=== PATIENT | male | born 1975 | race Two or more races ===

== ENCOUNTER 2020-09-23 10:16 | Emergency (ER) | payer MEDICARE, OTHER ==
[~2020-09-23] VITALS: Ht 180.3 cm; Wt 72.6 kg
--- NOTE | 2020-09-23 10:16 | NUR ---
PT [facility] AND [employer] FROM [facility] STRE[address] C/O BIZARRE BEHAVIOR AND METH USE. PT IS AAOX3, NOT IN RESPIRATORY DISTRESS, V/S STABLE, KEPT RESTED AND COMFORTABLE. WILL CONTINUE TO MONITOR.
--- NOTE | 2020-09-23 10:23 | NUR ---
SITTER AT BEDSIDE FOR SAFETY PRECAUTION.
[2020-09-23 11:10] LABS: BASOPHILS # (AUTO) 0.1 /CMM (0.0-0.2); BASOPHILS % (AUTO) 0.9 % (0.0-2.0); EOSINOPHILS % (AUTO) 0.4 % (0.0-6.0); HEMATOCRIT 34 % (39-51); HEMOGLOBIN 11.3 g/dL (13.5-17.5); LYMPHOCYTES # (AUTO) 2.1 /CMM (0.8-4.8); MEAN CORPUSCULAR HGB CONC 33 g/dl (31.0-36.0); MEAN CORPUSCULAR VOLUME 88 fL (80-96); MONOCYTES # (AUTO) 0.5 /CMM (0.1-1.30); MONOCYTES % (AUTO) 7.1 % (2.0-12.0); NEUTROPHILS # (AUTO) 4.6 /CMM (1.8-8.9); NEUTROPHILS % (AUTO) 62.6 % (43.0-81.0); PLATELET COUNT (AUTO) 218 /CMM (150-450); RED BLOOD CELL COUNT(AUTO) 3.86 MIL/uL (4.5-6.0); WHITE BLOOD COUNT (AUTO) 7.3 K/uL (4.3-11.0)
[2020-09-23 11:16] LABS: CALCIUM, SERUM 7.7 mg/dL (8.5-10.1); CARBON DIOXIDE 21 mmol/L (21-32); CHLORIDE 110 mmol/L (98-107); CREATININE 0.9 mg/dL (0.6-1.3); GLUCOSE 79 mg/dL (74-106); SODIUM SERUM 144 mmol/L (136-145); UREA NITROGEN, BLOOD 29 mg/dL (7-18)
[2020-09-23 11:22] LABS: ACETAMINOPHEN < 0 ug/ml (10-30); ALANINE AMINOTRANSFERASE 62 U/L (12-78); ALBUMIN 3.3 g/dL (3.4-5.0); ALCOHOL, BLOOD 125 mg/dL (0-0); ALKALINE PHOSPHATASE 67 U/L (46-116); ASPARTATE AMINOTRANSFERASE 120 U/L (15-37); BILIRUBIN,DIRECT 0.2 mg/dL (0.0-0.2); BILIRUBIN,TOTAL 2.9 mg/dL (0.2-1.0); TOTAL PROTEIN, SERUM 6.3 g/dL (6.4-8.2)
--- NOTE | 2020-09-23 12:16 | NUR ---
URINE SPECIMEN COLLECTED AND SENT TO LAB.
[2020-09-23 12:22] LABS: BILIRUBIN,URINE Negative (NEGATIVE); LEUKOCYTE ESTERASE ,URINE Negative (NEGATIVE); NITRITE, URINE Negative (NEGATIVE); PH,URINE 5.5 (5.0-8.0); PROTEIN,URINE 30 mg/dl (NEGATIVE); UGLUCOSE Negative (NEGATIVE); UROBILINOGEN,URINE 0.2 EU/dL (0.2)
[2020-09-23 12:23] LABS: COLOR,URINE DARK YELLOW (YELLOW)
[2020-09-23 12:27] LABS: BACTERIA,URINE Few /HPF (None Seen); RBC,URINE 21-50 /HPF (0-2); SQUAMOUS EPITHELIAL CELL,UR Few /HPF (None Seen)
[2020-09-23] MEDS ORDERED: diphenhydrAMINE HCL 50 MG/ML VIAL ONE (16:24)
[2020-09-23] MEDS ORDERED: LORAZEPAM INJ 2 MG/ML VIAL ONE (16:24)
[2020-09-23] MEDS ORDERED: LORAZEPAM INJ 2 MG/ML VIAL IM/IV ONE (16:30)
[2020-09-23] MEDS ORDERED: diphenhydrAMINE HCL 50 MG/ML VIAL IM ONE (16:30)
--- NOTE | 2020-09-23 16:35 | NUR ---
pt noted starting be agitated and keeps trying to get out of bed. md made aware. orders received, to give brnadruyl 50mg and aitvam 2mg both im x 1. noted and carried out.
[2020-09-23] MEDS ORDERED: HALOPERIDOL LACTATE INJ 5 MG/ML VIAL ONE (17:28)
[2020-09-23] MEDS ORDERED: HALOPERIDOL LACTATE INJ 5 MG/ML VIAL IM ONE (17:30)
--- NOTE | 2020-09-24 01:27 | NUR ---
PT ASLEEP, PROVIDED WITH BLANKETS.
[2020-09-24] MEDS ORDERED: POTASSIUM CHLORIDE 20 MEQ TAB.PRT.SR PO ONE ×2 (02:00→03:23)
[2020-09-24] MEDS ORDERED: OLAN5TAB3 PO (05:27)
--- NOTE | 2020-09-24 05:31 | NUR ---
PT AAOX4. DENIES SI AND HI.
--- NOTE | 2020-09-24 06:43 | NUR ---
AWAITING KAIN FROM CRISIS TEAM TO EVALUATE PT DUE TO PT BEING ON 5150.
--- NOTE | 2020-09-24 12:56 | NUR ---
SEEN AND EVALUATED BY KAIN, PATIENT IS ALERT AND ORIENTED X4, BREATHING EVEN AND UNLABORED, NO SOB NOTED.AMBULATORY WITH STEADY GAIT.
[2020-09-24 12:57] VITALS: BP 122/73
--- NOTE | 2020-09-24 12:57 | NUR ---
Patient discharged to home in stable condition. Written and verbal after care instructions given. Patient verbalizes understanding of instruction.
--- NOTE | 2020-09-24 12:57 | NUR ---
Patient given written and verbal discharge instructions. Patient verbalizes understanding of instructions. Patient is ambulatory with steady gait. Refuses offer of jail placement. Patient given list of available shelters in surrounding area.
== END 2020-09-24 12:59 | disposition home or self-care (01) ==
LOC: ER 10:18
DX: F15.10 Other stimulant abuse, uncomplicated (principal); F20.9 Schizophrenia, unspecified; Z59.0 Homelessness
CPT/HCPCS: 36415; 80048; 80076; 80299; 80307; 80320; 81001; 85025; 96372 ×2; 99285; J1200; J1630; J2060; G0480